=== PATIENT | female | born 1995 | race Hispanic/Latino ===

== ENCOUNTER 2017-02-10 08:16 | Emergency (ER) | payer SELFPAY ==
[2017-02-10 08:17] VITALS: BMI 21.4
[2017-02-10 09:01] VITALS: TEMP 93.7
--- NOTE | 2017-02-10 09:16 | ED PDOC ---
Arrival/HPI - General Chief Complaint: Cardiac Arrest Time Seen by Provider: 02/10/17 09:09 Historian: Family, EMS EM Caveat: Acuity of Condition - History of Present Illness Narrative History of Present Illness (Text): 02/10/17 09:19 21yo female brought in by BLS, CPR in progress. Per parents, pt was last heard in her room at 5am. She was then found around 7:55 (per parents), blue and not breathing. CPR started by family and EMS called. Pt seen immediately on arrival. Parents report daughter has been taking many drugs for the past 6 months, including marijuana, xanax, opiates. Past Medical History - Provider Review Nursing Documentation Reviewed: Yes - Past History Past History: Non-Contributing - Infectious Disease Hx of Infectious Diseases: None - Tetanus Immunization Tetanus Immunization: Unknown - Reproductive Menopause: No - Past Medical History Past Medical History: Non-Contributing - Cardiac Hx Cardiac Disorders: No - Pulmonary Hx Respiratory Disorders: Yes Hx Asthma: Yes - Neurological Hx Neurological Disorder: Yes Hx Seizures: Yes - Musculoskeletal/Rheumatological Hx Falls: No - Psychiatric Hx Anxiety: Yes Hx Panic Disorder: Yes Hx Substance Use: Yes (used marijuana this morning) - Past Surgical History Past Surgical History: No Previous - Anesthesia Hx Anesthesia: No Hx Anesthesia Reactions: No Hx Malignant Hyperthermia: No - Suicidal Assessment Feels Threatened In Home Enviroment: No Family/Social History Family/Social History: Unknown Family HX Smoking Status: Light Smoker < 10 Cigarettes Daily Hx Alcohol Use: Yes Hx Substance Use: Yes (used marijuana this morning) Substance used: marijuana, cocaine Hx Substance Use Treatment: No Allergies/Home Meds Allergies/Adverse Reactions: Allergies cats Allergy (Intermediate, Uncoded 02/10/17 08:58) RASH Review of Systems - Review of Systems Systems not reviewed;Unavailable: Acuity of Condition Physical Exam - Physical Exam Physical Exam Limitations: Clinical Condition Vital Signs Temp BP 02/10/17 09:20 86/53 L 02/10/17 09:00 93.7 F L 02/10/17 08:30 90.8 F L Finger Stick Blood Glucose: 290 - Systems Exam Head: Present: Atraumatic, Normocephalic Pupils: Present: Non-Reactive Mouth: Present: Other (vomitus (suctioned)) Pharnyx: Present: Other (vomitus (suctioned)). No: ERYTHEMA, EXUDATE Respiratory/Chest: Present: Respiratory Distress, Other (ETT-placement confirmed via b/l breath sounds and abscence of stomach sounds. O2 sat 100%) Cardiovascular: Present: Regular Rate and Rhythm, Normal S1, S2. No: Murmurs Abdomen: No: Distention, Peritoneal Signs, Rebound, Guarding Upper Extremity: Present: Normal Inspection. No: Cyanosis, Edema Lower Extremity: Present: Normal Inspection. No: Edema Neurological: Present: Other (GCS 3). No: GCS=15 Skin: Present: Warm, Dry Medical Decision Making ED Course and Treatment: pt seen immediately on arrival intubated medications per RN sheet (amio given for episode of wide-complex tachycardia on monitor, non-shockable) senior administrative assistant bedside coded for close to an hour in the ED no gag reflex, pupils wide, non-reactive. No pulses. No cardiac activity on US time of 09:01 pt's temp 93.[address] Maya, aware of pt outcome parents informed consoled Disposition/Present on Arrival - Present on Arrival Any Indicators Present on Arrival: No History of DVT/PE: No History of Uncontrolled Diabetes: No Urinary Catheter: No History of Decub. Ulcer: No History Surgical Site Infection Following: None - Disposition Have Diagnosis and Disposition been Completed?: Yes Diagnosis: Cardiac arrest Disposition: WITH WITHOUT AUTOPSY Disposition Time: 09:01 Condition: Referrals: Andrew Maya MD [Primary Care Provider] - Follow up with primary Forms: ResQU (Lithuanian) Procedure: Intubation - Time Out Time Out: Side verified, Site verified - Consent Obtained Consent obtained: Emergent consent implied - Performed By Performed by: Attending Physician - Indications Indication(s):: Respiratory arrest, Cardiac arrest - Method Method:: Oral-Laryngoscopy - Rapid Sequence Intubation Anesthetic:: Other (no meds) Paralytic:: Other (no meds) - Tube type Tube type:: Endotracheal tube Tube size:: Cuffed Number of attempts:: 1 (copious amt of vomitus in suctioned from the oropharynx) Depth measured at lip: cm: 23cm - Confirmation Confirmation: Direct visual.of intubate, Bilat. breath sounds, No epigastric gurgle
[2017-02-10 10:09] VITALS: BP 86/53
[2017-02-10] MEDS ORDERED: Naloxone 0.4 mg/ml Inj (Adult) ONE (16:20)
== END 2017-02-10 12:27 ==
LOC: ED 08:16
DX: I46.9 Cardiac arrest, cause unspecified (principal)